=== PATIENT | male | born 1985 | race African-American/Black ===

== ENCOUNTER 2020-12-18 20:54 | Emergency (ER) | payer OTHER ==
[~2020-12-18] VITALS: Ht 182.9 cm; Wt 63.5 kg
[~2020-12-18 20:54] MED LIST: ACETAMINOPHEN325 M1 PO; IBUPROFEN 600600 M1 PO; NORFLEX100 MG PO; TESSALON PERLE100 MG PO
[2020-12-18 21:49] LABS: CALCIUM 9.1 mg/dL (8.5-10.1); CREATININE 1.2 mg/dL (0.7-1.3)
[2020-12-18 21:50] LABS: POTASSIUM 3.8 mmol/L (3.5-5.1)
[2020-12-18 22:55] LABS: ABSOLUTE NEUTROPHILS 9.5 thou/uL (1.4-8.2); BASOPHILS 0.2 % (0.0-2.0); EOSINOPHILS 0.1 % (0.0-3.0); HEMATOCRIT 44.6 % (42.0-52.0); HEMOGLOBIN 15.1 gm/dL (14.0-18.0); LYMPHOCYTES 4.6 % (24.0-44.0); MCH 31.9 pg (26.0-34.0); MCHC 33.9 g/dL (28.0-37.0); MCV 94.1 fL (80.0-100.0); PLATELET COUNT 166 thou/uL (150-400); POLYS 92.1 % (36.0-66.0); RBC 4.74 mil/uL (4.50-6.00); RDW 12.9 % (10.5-14.5); WBC 10.3 thou/uL (4.0-11.0)
[2020-12-19] MEDS ORDERED: REGLAN 5 MG TAB5 MG PO (01:43)
[2020-12-19 01:48] VITALS: BP 97/57
== END 2020-12-19 01:50 | disposition home or self-care (01) ==
LOC: ER 20:54
PROVIDERS: Nurse Practitioner
DX: R11.2 Nausea with vomiting, unspecified (principal); Z20.822 Contact with and (suspected) exposure to COVID-19

== ENCOUNTER 2021-03-17 21:54 | Emergency (ER) | payer OTHER ==
[~2021-03-17] VITALS: Ht 182.9 cm; Wt 68.0 kg
--- NOTE | ~2021-03-17 | EMS ---
[place] [address] EMS Patient Care Report Name: EMELY GUTIERREZ Room #: DEP TIANNA Corea#: [id number] Admission: 03/17/21 Attend Phys: Discharge: 03/18/21 Date of : [birth year] Report #: [id number] THIS REPORT FOR: //name// Report Transmitted: 03/19/2021 13:59 EMS Care Summary [place], [place]/[facility] Incident [id number] @ 03/17/2021 20:58 Incident Location [address] [place] [address] Patient EMELY GUTIERREZ Male, 35 Years 1985 Patient Address [address] [place] [address] Patient History None Reported, Patient Allergies No known allergies, Patient Medications None Reported, Chief Complaint SI Disposition Transported No Lights/[place] Dispatch Reason Overdose/Poisoning/Ingestion Transported To [facility] Narrative M42 ARRIVED, PD ADVISED THAT TO WAIT IN MED UNIT UNTIL THEY BROUGHT THE PT OUT. PD STATED THAT THEY RECEIVED A CALL FOR A SI PT AND THAT THEY ARE FILLING OUT A CIT ON THIS PT. PT WAS BROUGHT OUT TO THE AMBULANCE, PT WAS SEATED AND SEATBELT ATTACHED. PT [address] [address] EMS Patient Care Report Name: EMELY GUTIERREZ Room #: DEP ER Christine#: [id number] Admission: 03/17/21 Attend Phys: Discharge: 03/18/21 Date of : [birth year] Report #: [id number] WAS CALM AND UN CONFRINTIONAL WHILE VITALS AND HYSTORY WERE OBTAINED PT WAS TRANSFERED TO ED WITHOUT ISSUE, DIRECTLY AFTER TRANSFER OF CARE PT BECAME UPSET AND SECURITY WAS CALLED. PD FAILED TO ARRIVE AT HOSPITAL WHILE EMS WAS ONSCENE , M42 ADVISED DISPATCH THAT PD WAS NEEDED EMS HAD NO EVIDENCE OF THE SI BEHAVIOR. Initial Vitals @21:41P: 81,R: 16,BP: 120/70,Pain: 0/10,GCS: 15,CO: 2,SpO2: 99,Revised Trauma: 12, @21:50P: 80,R: 16,BP: 120/70,Pain: 0/10,GCS: 15,SpO2: 99,Revised Trauma: 12, Assessments @21:37MENTAL:No Abnormalities,SKIN:No Abnormalities,HEENT:Head/Face: No Abnormalities,Eyes: No Abnormalities,Neck/Airway: No Abnormalities,LUNG SOUNDS:General: No Abnormalities,Left Upper: No Abnormalities,Right Upper: No Abnormalities,Left Lower: No Abnormalities,Right Lower: No Abnormalities,ABDOMEN:General: No Abnormalities,Left Upper: No Abnormalities,Right Upper: No Abnormalities,Left Lower: No Abnormalities,Right Lower: No Abnormalities,PELVIS//GI:No Abnormalities,EXTREMITIES:Left Arm: No Abnormalities,Right Arm: No Abnormalities,Left Leg: No Abnormalities,Right Leg: No Abnormalities,PULSE:NEURO:No Abnormalities, Impression Suicidal Ideation Procedures @21:37 BLS Assessment Response: Unchanged Timeline 20:57,Call Received 20:57,Dispatch Notified 20:58,Dispatched 20:59,En Route 21:24,On Scene 21:37,At Patient 21:37,BLS Assessment,Response: Unchanged 21:38,Depart Scene 21:41,BP: 120/70 M,PULSE: 81,RR: 16 R,SPO2: 99 Ox,ETCO2: ,BG: ,PAIN: 0,GCS: 15, 21:48,At Destination 21:50,BP: 120/70 M,PULSE: 80,RR: 16 R,SPO2: 99 Ox,ETCO2: ,BG: ,PAIN: 0,GCS: 15, 22:13,Call Closed Disclaimer [facility] [address] [place] [address] EMS Patient Care Report Name: EMELY GUTIERREZ Room #: DEP [facility].#: [id number] Admission: 03/17/21 Attend Phys: Discharge: 03/18/21 Date of : [birth year] Report #: [id number] v1.1 Copyright 2021 [employer] This EMS Care Summary contains data elements from the applicable legal record (which may be displayed differently). It is designed to provide pertinent information for the following purposes: continuity of care, clinical quality, and state data reporting. The complete legal record is available to ED staff and administrators of the receiving hospital in [employer]'s Patient Tracker. All data is provided "as is."
[~2021-03-17 21:54] MED LIST changes: +REGLAN 5 MG TAB5 MG PO
[2021-03-17 22:58] LABS: HEMATOCRIT 40.1 % (42.0-52.0); HEMOGLOBIN 14.1 gm/dL (14.0-18.0); MCH 32.4 pg (26.0-34.0); MCHC 35.1 g/dL (28.0-37.0); MCV 92.4 fL (80.0-100.0); RBC 4.34 mil/uL (4.50-6.00); WBC 6.9 thou/uL (4.0-11.0)
[2021-03-17 23:00] LABS: AMP/METHAMP Negative (Negative); BARBITURATES Negative (Negative); BENZODIAZEPINES Negative (Negative); COCAINE Negative (Negative); METHADONE Negative (Negative); OPIATES Negative (Negative); PCP Negative (Negative)
[2021-03-17 23:14] LABS: ANION GAP 10 mmol/L (7-16); BUN 7 mg/dL (7-18); CALCIUM 9.7 mg/dL (8.5-10.1); CHLORIDE 103 mmol/L (98-107); CO2 28 mmol/L (21-32); GLUCOSE 106 mg/dL (74-106); POTASSIUM 3.8 mmol/L (3.5-5.1); SODIUM 141 mmol/L (136-145)
[2021-03-17 23:20] LABS: ALBUMIN 3.7 g/dL (3.4-5.0); SALICYLATE < 2.8 mg/dL (2.8-20.0); SGOT 28 U/L (15-37); SGPT 43 U/L (16-63); TOTAL BILIRUBIN 0.4 mg/dL (0.2-1.0); TOTAL PROTEIN 7.5 g/dL (6.4-8.2)
[2021-03-18 01:05] VITALS: BP 121/78
== END 2021-03-18 01:07 | disposition home or self-care (01) ==
LOC: ER 21:54
PROVIDERS: Emergency Medicine
DX: R45.851 Suicidal ideations (principal)